=== PATIENT | male | born 1990 | race Caucasian/White ===

== ENCOUNTER 2017-05-14 08:32 | Emergency (ER) | payer OTHER ==
[2017-05-14] MEDS ORDERED: LET GEL TOPICAL 1 EA SYR TP ONE ×2 (08:39→09:03)
[2017-05-14 08:47] VITALS: PULSE 74; RESP 18; TEMP 98; O2SAT 96
[2017-05-14] MEDS ORDERED: SKIN ADHESIVE (DERMABOND) 1 EACH TP ONE (09:24)
--- NOTE | 2017-05-14 09:40 | EDPHY ---
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 His last tetanus shot was within 10 years. He denies any other pain or injury. REVIEW OF SYSTEMS: As in HPI, and all other systems reviewed and are negative Smoking Status: Current every day smoker Physical Exam: General Appearance: Alert and no distress. Head: Normocephalic, atraumatic Eyes: Pupils equal and round no injection. Extraocular movements are intact. Musculoskeletal: Neck is supple and nontender. Extremities: Right ring finger with 1 cm flap laceration on the distal tip of right ring finger. Distal cap refill less than 2 sec Skin: No rashes or lesions except as described above. [ ] Constitutional: Initial Vital Signs Temperature (C) 36.6 C 05/14/17 08:45 Heart Rate 74 05/14/17 08:45 Respiratory Rate 18 05/14/17 08:45 Blood Pressure 142/66 H 05/14/17 08:45 O2 Sat (%) 96 05/14/17 08:45 O2 Delivery Mode Room Air Allergies/Adverse Reactions: No Known Allergies Allergy (Verified 01/09/16 13:07) Home Medications: Medication Instructions Recorded NO HOME MEDS 09/06/09 MDM/Departure - MDM Procedures: Procedure: Laceration repair with skin glue. The 1 cm flap laceration on the right distal index finger was anesthetized with topical let and irrigated by the tech. The wound was cleaned and explored to its base with a gloved finger. There were no deep structures involved. The wound was repaired with tissue adhesive by closing the flap. The procedure was performed by myself. Medications Given: Discontinued Medications Tetracaine/Epinephrine/Lidocaine (Let Gel Topical) 1 ea TP EDNOW ONE Stop: 05/14/17 09:04 Last Admin: 05/14/17 09:21 Dose: 1 ea - Depart Disposition: Home, Routine, Self-Care Clinical Impression: Laceration Condition: Good Instructions: Skin Adhesive Care (ED) Additional Instructions: You were seen by Dr. Delfina Hdez today. Keep the wound dry for the 1st 24 hr then you may wash as usual. 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 Return for any worsening or new concerns. Stand Alone Forms: Work Limited Duty, Work Excuse Referrals: NONE *PRIMARY CARE P,. [Primary Care Provider] - As per Instructions
[2017-05-14 10:07] VITALS: BP 122/62
== END 2017-05-14 10:08 | disposition home or self-care (01) ==
LOC: CED 08:32
PROC: 0HQFXZZ Repair Right Hand Skin, External Approach (ICD-10-PCS; principal; 2017-05-14)
DX: S61.214A Laceration without foreign body of right ring finger without damage to nail, initial encounter (principal); F17.200 Nicotine dependence, unspecified, uncomplicated; W45.8XXA Other foreign body or object entering through skin, initial encounter; Y92.511 Restaurant or cafe as the place of occurrence of the external cause; Y99.0 Civilian activity done for income or pay; Y93.89 Activity, other specified